=== PATIENT | female | born 1930 | race Caucasian/White ===

== ENCOUNTER 2018-01-01 15:23 | Observation (INO) ==
[2018-01-01] MEDS ORDERED: HYDROmorphone 2 MG/1 ML VIAL ONE (15:35)
[2018-01-01] MEDS ORDERED: ONDANSETRON 4 MG/2 ML VIAL ONE (15:35)
[2018-01-01] MEDS ORDERED: HYDROmorphone 2 MG/1 ML VIAL IV STA (15:48)
[2018-01-01] MEDS ORDERED: ONDANSETRON 4 MG/2 ML VIAL IV STA (15:48)
[2018-01-01] MEDS ORDERED: MORPHINE 4 MG/1 ML VIAL IV PRN ×2 (16:32→16:49)
[2018-01-01] MEDS ORDERED: ONDANSETRON 4 MG/2 ML VIAL IV PRN (16:32)
[2018-01-01] MEDS ORDERED: MAGNESIUM HYDROXIDE SUSP 30 ML UDCUP PO PRN (16:32)
[2018-01-01] MEDS ORDERED: TEMAZEPAM 15 MG CAPSULE PO PRN (16:32)
[2018-01-01 16:45] LABS: Basophils % 0.3 % (0.0-0.8); Eosinophils # 0.1 10*3/uL (0.0-0.87); Eosinophils % 1.3 % (0.00-10.9); Hematocrit 39.7 VOL% (35.7-47.0); Immature Granulocytes % 0.2 %; Immature Granulocytes Absolute 0.02 #; Lymphocytes # 1.8 10*3/uL (1.4-4.0); Lymphocytes % 20.2 % (21.3-54.2); Mean Corpuscular HGB Conc 32.7 GM/DL (32-36); Mean Corpuscular Hemoglobin 30 PG (27-34); Mean Corpuscular Volume 92.8 FL (87-102); Mean Platelet Volume 9.5 FL (9.6-12.0); Monocytes # 0.6 10*3/uL (0.11-0.8); Monocytes % 7.1 % (1.7-12.7); Neutrophils # 6.2 10*3/uL (1.4-7.4); Neutrophils % 70.9 % (38.7-73.9); Platelet Count 251 T/CUMM (130-400); Red Blood Count 4.28 MC/CUMM (3.8-5.5); Red Cell Distribution Width 13.5 % (9.3-17.3); White Blood Count 8.8 T/CUMM (4-12)
[2018-01-01 16:59] LABS: PT Patient Result 10.2 SECS; Partial Thromboplastin Time 25.8 SECS (0-40)
[2018-01-01 17:08] LABS: Albumin 3.7 G/DL (3.4-5.0); Bilirubin,Total 0.5 MG/DL (0.2-1.0); Calcium 9.3 MG/DL (8.5-10.1); Osmolality,Calculated 282.4 MOS/KG (273-304); Potassium 3.7 MMOL/L (3.5-5.1); Total Protein 6.9 G/DL (6.4-8.3)
[2018-01-01] MEDS: LACTATED RINGERS 1,000 ML IV SCH (18:00)
[2018-01-01] MEDS ORDERED: PROMETHAZINE 25 MG/1 ML VIAL IM PRN (18:41)
[2018-01-02] MEDS ORDERED: CLINDAMYCIN INJ 900 MG in PREMIX 1 EACH IV ONE (07:00)
[2018-01-02] MEDS ORDERED: ROPIVACAINE 0.5% 30 ML VIAL ONE (07:20)
[2018-01-02] MEDS ORDERED: POLYETHYLENE GLYCOL POWDER 17 GM PACK PO PRN (08:36)
[2018-01-02] MEDS ORDERED: PANTOPRAZOLE 40 MG TABLET PO SCH (09:00)
[2018-01-02] MEDS ORDERED: METOPROLOL TARTRATE 25 MG TABLET PO SCH (09:00)
[2018-01-02] MEDS ORDERED: CYANOCOBALAMIN 1000 MCG/1 ML VIAL IM SCH (09:00)
[2018-01-02] MEDS ORDERED: MAGNESIUM HYDROXIDE SUSP 30 ML UDCUP PO PRN (09:23)
[2018-01-02] MEDS ORDERED: ESTROGENS (CONJ) VAG CREAM 30 GM TUBE VAG SCH (09:30)
[2018-01-02] MEDS ORDERED: MIDAZOLAM 2 MG/2 ML VIAL ONE (10:04)
[2018-01-02] MEDS ORDERED: SEVOFLURANE 1 UNIT/15 MINUTE INH ONE (10:04)
[2018-01-02] MEDS ORDERED: PHENYLEPHRINE DRIP 20 MG/250 ML PREMIX IV ONE (10:04)
[2018-01-02] MEDS ORDERED: PHENYLEPHRINE 1 MG/10 ML SYRINGE IV ONE (10:05)
[2018-01-02] MEDS ORDERED: ETOMIDATE 40 MG/20 ML VIAL IV ONE (10:05)
[2018-01-02] MEDS ORDERED: ACETAMINOPHEN 325 MG TABLET PO PRN (11:41)
[2018-01-02] MEDS ORDERED: ACETAMINOPHEN 325 MG TABLET ONE (11:44)
[2018-01-02] MEDS: LACTATED RINGERS 1,000 ML IV SCH (14:40)
[2018-01-02 15:58] VITALS: BP 113/78
[2018-01-02] MEDS ORDERED: CHOLECALCIFEROL 1,000 UNIT TABLET PO SCH (17:00)
[2018-01-02] MEDS ORDERED: TAMSULOSIN 0.4 MG CAPSULE PO SCH (21:00)
== END 2018-01-02 16:28 | disposition home or self-care (01) ==
LOC: N.EDINP 15:23 → N.ED 15:23 → N.3E 17:27
PROVIDERS: ADMIT Orthopaedic Surgery; ATTEND Orthopaedic Surgery